=== PATIENT | male | born 1955 | race African-American/Black ===

== ENCOUNTER 2022-12-27 09:00 | Day surgery (SDC) | payer MEDICARE ==
[~2022-12-27 09:00] MED LIST: Acetaminophen 325 MG TAB PO SCH; Furosemide 20 MG/2 ML VIAL SLOW IVP SCH; diphenhydrAMINE 50 MG/ML VIAL IVP SCH
[2022-12-27 09:37] LABS: #Eosinphils 0.4 thou/uL (0.0-0.7); #Monocytes 1.7 thou/uL (0.11-0.59); #Neutrophils 6.8 thou/uL (1.40-6.50); %Basophils 0.3 % (0.0-1.0); %Eosinophils 3.7 % (0.0-10.0); %Lymphocytes 15.6 % (21.0-51.0); %Monocytes 15.8 % (0.0-10.0); %Neutrophils 63.2 % (42.0-75.0); Hematocrit 28.3 % (42.0-52.0); Hemoglobin 8.8 g/dL (14.0-18.0); Mean Corpuscular HGB CONC 31.1 g/dL (32.0-36.0); Mean Corpuscular Hemoglobin 27.2 pg (27.0-31.0); Mean Corpuscular Volume 87.6 fl (78.0-98.0); Mean Platelet Volume 8.9 fL (7.4-10.4); Platelet Count 376 10x3/uL (130-400); RBC Distribution Width 19.5 % (11.5-14.5); Red Blood Cell (RBC) Count 3.23 mill/uL (4.70-6.10); White Blood Cell (WBC) Count 10.7 10x3/uL (4.8-10.8)
[2022-12-27] MEDS ORDERED: Acetaminophen 500 MG TAB ONE (10:22)
[2022-12-27] MEDS ORDERED: Acetaminophen 325 MG TAB ONE (10:24)
[2022-12-27 12:57] VITALS: BP 122/85; TEMP 97.2
[2022-12-27] MEDS ORDERED: FLU VACC QS2023(65UP)/MF59C/PF 60 MCG/0.5 ML SYRINGE IM ONE (15:00)
== END 2022-12-27 13:00 | disposition home or self-care (01) ==
LOC: ONC/OP 09:00
PROVIDERS: ATTEND Family Medicine
DX: I78.0 Hereditary hemorrhagic telangiectasia (principal); D50.0 Iron deficiency anemia secondary to blood loss (chronic)
CPT/HCPCS: 36430; 85025; 86850; 86900; 86901; 86920; P9016

== ENCOUNTER 2023-01-18 08:47 | Day surgery (SDC) | payer MEDICARE ==
[2023-01-18] MEDS ORDERED: Acetaminophen 325 MG TAB ONE (11:44)
[2023-01-18] MEDS ORDERED: diphenhydrAMINE 50 MG/ML VIAL ONE (11:44)
[2023-01-18] MEDS ORDERED: Furosemide 20 MG/2 ML VIAL SLOW IVP SCH (12:00)
[2023-01-18] MEDS ORDERED: FLU VACC QS2023(65UP)/MF59C/PF 60 MCG/0.5 ML SYRINGE IM ONE (12:00)
[2023-01-18] MEDS ORDERED: Acetaminophen 325 MG TAB PO SCH (12:15)
[2023-01-18] MEDS ORDERED: diphenhydrAMINE 50 MG/ML VIAL IVP SCH (12:15)
[2023-01-18 15:11] VITALS: BP 102/57; TEMP 97.8
== END 2023-01-18 15:32 | disposition home or self-care (01) ==
LOC: ONC/OP 08:47
PROVIDERS: ATTEND Family Medicine
DX: D64.9 Anemia, unspecified (principal)
CPT/HCPCS: 36430; 86850; 86900; 86901; 86920; P9016; J1200; J1940